=== PATIENT | male | born 1995 | race Caucasian/White ===

== ENCOUNTER 2017-06-17 22:45 | Emergency (ER) | payer OTHER ==
[~2017-06-17] VITALS: Ht 182.9 cm; Wt 72.6 kg
[~2017-06-17 22:45] MED LIST: KETO10 PO; Norco 5-325 Ta1 EACH PO; PROM25 PO; Pepcid40 MG PO; TRAM50 PO; Veetids 500500 MG PO
== END 2017-06-17 23:55 | disposition home or self-care (01) ==
LOC: ER 22:45
DX: S61.210A Laceration without foreign body of right index finger without damage to nail, initial encounter (principal); F17.210 Nicotine dependence, cigarettes, uncomplicated; W26.0XXA Contact with knife, initial encounter; Y99.0 Civilian activity done for income or pay; Y92.89 Other specified places as the place of occurrence of the external cause
CPT/HCPCS: 12001; 90471; 90714; 99283

== ENCOUNTER 2018-05-08 10:17 | Emergency (ER) | payer SELFPAY ==
[~2018-05-08] VITALS: Ht 175.3 cm; Wt 72.6 kg
[2018-05-08] MEDS ORDERED: TRAZ50 PO (10:38)
== END 2018-05-08 10:45 | disposition home or self-care (01) ==
LOC: ER 10:17
DX: G47.00 Insomnia, unspecified (principal); F17.210 Nicotine dependence, cigarettes, uncomplicated
CPT/HCPCS: 99282

== ENCOUNTER 2018-05-13 23:23 | Emergency (ER) | payer SELFPAY ==
[~2018-05-13] VITALS: Ht 182.9 cm; Wt 61.2 kg
[~2018-05-13 23:23] MED LIST changes: +TRAZ50 PO
== END 2018-05-14 02:10 | disposition left against medical advice (07) ==
LOC: ER 23:23
DX: Z53.21 Procedure and treatment not carried out due to patient leaving prior to being seen by health care provider (principal)
CPT/HCPCS: Q0163